=== PATIENT | female | born 1980 | race Caucasian/White ===

== ENCOUNTER 2017-05-24 14:59 | Emergency (ER) | payer SELFPAY ==
[~2017-05-24] VITALS: Ht 170.2 cm; Wt 98.8 kg
[2017-05-24 19:40] VITALS: BP 116/88
== END 2017-05-24 19:40 | disposition left against medical advice (07) ==
LOC: EME 14:59
DX: R25.8 Other abnormal involuntary movements (principal); Z53.21 Procedure and treatment not carried out due to patient leaving prior to being seen by health care provider